=== PATIENT | female | born 1995 | race Caucasian/White ===

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

== ENCOUNTER 2020-08-17 19:06 | Outpatient (CLI) | payer OTHER ==
[~2020-08-17 19:06] MED LIST changes: +IBUPROFEN600 MG PO; +PRENATAL TABLE1 EAC1 PO
== END 2020-08-18 09:39 | disposition home or self-care (01) ==
LOC: GENOP 19:06
DX: O60.02 Preterm labor without delivery, second trimester (principal); Z3A.23 23 weeks gestation of pregnancy
CPT/HCPCS: 81001; 96360; 96361; 96366

== ENCOUNTER 2020-10-06 19:04 | Outpatient (CLI) | payer OTHER | END 2020-10-06 21:43 | disposition home or self-care (01) | LOC: GENOP 19:04 | DX: O99.891 Other specified diseases and conditions complicating pregnancy (principal); M54.9 Dorsalgia, unspecified; R53.1 Weakness; R42 Dizziness and giddiness; R00.2 Palpitations; O24.913 Unspecified diabetes mellitus in pregnancy, third trimester; O99.343 Other mental disorders complicating pregnancy, third trimester; F41.9 Anxiety disorder, unspecified; F32.9 Major depressive disorder, single episode, unspecified; Z87.440 Personal history of urinary (tract) infections; Z88.1 Allergy status to other antibiotic agents; Z91.018 Allergy to other foods; Z79.899 Other long term (current) drug therapy; Z3A.30 30 weeks gestation of pregnancy | CPT/HCPCS: 59025; 81001; 82731; G0463 ==

== ENCOUNTER 2020-12-04 05:42 | Inpatient (IN) | payer OTHER ==
[~2020-12-04] VITALS: Ht 160 cm; Wt 115.2 kg
[2020-12-04 06:15] LABS: HEMOGLOBIN 10.7 gm/dl (12.3-15.3); RED BLOOD COUNT 4.49 M/UL (4.00-5.10); WHITE BLOOD COUNT 8.6 K/UL (4.5-11.0)
[2020-12-04] MEDS ORDERED: PRENATAL TABLE1 EAC1 PO (07:36)
== END 2020-12-06 11:29 | disposition home or self-care (01) | DRG 807 ==
LOC: OB 05:42
PROVIDERS: Obstetrics & Gynecology; ADMIT Obstetrics & Gynecology
PROC: 10E0XZZ Delivery of Products of Conception, External Approach (ICD-10-PCS; principal; 2020-12-04)
PROC: 10907ZC Drainage of Amniotic Fluid, Therapeutic from Products of Conception, Via Natural or Artificial Opening (ICD-10-PCS; 2020-12-04)
PROC: 4A1HXCZ Monitoring of Products of Conception, Cardiac Rate, External Approach (ICD-10-PCS; 2020-12-04)
DX: O99.344 Other mental disorders complicating childbirth (principal); Z37.0 Single live birth; F32.9 Major depressive disorder, single episode, unspecified; Z20.822 Contact with and (suspected) exposure to COVID-19; Z3A.39 39 weeks gestation of pregnancy; O99.214 Obesity complicating childbirth; O66.0 Obstructed labor due to shoulder dystocia; Z87.440 Personal history of urinary (tract) infections; Z88.1 Allergy status to other antibiotic agents; Z88.8 Allergy status to other drugs, medicaments and biological substances
CPT/HCPCS: 36415; 51702; 82800; 85014; 85018; 85025; 90715; J0595; J2210; J2590; J7120; U0003